=== PATIENT | male | born 1960 | race Caucasian/White ===

== ENCOUNTER 2017-08-11 14:03 | Emergency (ER) | payer MEDICARE ==
[~2017-08-11] VITALS: Ht 175.3 cm; Wt 70.3 kg
[~2017-08-11 14:03] MED LIST: ALPR0.5T3 PO; ASPI-183 PO; ATOR80TA45 PO; FURO1TAB60 PO; GEMF600T PO; LISI-515 PO; METF500T PO; METO1TAB43 PO; OXYC-406 PO; PLAV75TA29 PO
[2017-08-11 14:08] VITALS: BP 172/86; PULSE 98; RESP 18; TEMP 98; O2SAT 100
[2017-08-11] MEDS ORDERED: KETOROLAC TROMETHAMINE 60 MG/2 ML (IM) VIAL IM ONE (14:30)
[2017-08-11] MEDS ORDERED: DEXAMETHASONE SOD PHOS 4 MG/ML VIAL IM ONE (14:30)
[2017-08-11] MEDS ORDERED: ORPHENADRINE INJ 60 MG/2 ML AMP IM ONE (14:30)
--- NOTE | 2017-08-11 14:39 | PD ---
HPI Chief Complaint: Pain: Acute or Chronic Time Seen by Provider: 14:16 Travel History International Travel<30 days: No Contact w/Intl Traveler<30days: No Traveled to known affect area: No History of Present Illness HPI 56-year-old male presents emergency department for evaluation of acute on chronic low back pain that worsened over the last several days. Patient states that he woke up and felt a twinge in his right lower paraspinous region and has developed into severe back pain over the last several days. Patient states that the pain is worse with movement, decreases with rest. Patient says he gets very similar pain about once a year and does not know why he started having this pain a few days ago. He denies weakness of his lower extremities. Says his pain is very characteristic of previous pain. Patient says he does go to a "pain clinic" and receives pain medication however, his medications are not working for him. Says he has had a couple of doses of his home muscle relaxers but has not been taking them regularly. He denies any new trauma. Denies fever, chills, IV drug use, saddle anesthesia, loss of bowel or bladder function. PFSH Past Medical History Asthma: No Anxiety: Yes Depression: No Heart Rhythm Problems: Yes Cancer: No Cardiac Catheterization: Yes Cardiovascular Problems: Yes High Cholesterol: Yes Chest Pain: Yes Congestive Heart Failure: Yes (2001) COPD: Yes (?) Cerebrovascular Accident: No Coronary Artery Disease: Yes Diabetes: Yes ("BORDERLINE") Diminished Hearing: No Gastrointestinal Disorders: Yes (hx pancreatitis) Genitourinary: No Headaches: No Herniated Disk: Yes Hypertension: Yes Implanted Vascular Access Dvce: No Musculoskeletal: Yes (CHRONIC BACK PAIN ) Psychiatric: Yes Respiratory: Yes Migraines: No Myocardial Infarction: Yes (2001 ?) Pancreatitis: Yes Seizures: No Sleep Apnea: Yes ("supposed to wear cpap") Thyroid Disease: No Past Surgical History Abdominal Surgery: No Cardiac Surgery: Yes (CABG X3) Coronary Artery Bypass Graft: Yes (x 3 vessels 2001) Coronary Stent: Yes (MAY 2013) Neurologic Surgery: No Other Surgery: Yes ("BACK SURGERY" X 2) Social History Alcohol Use: No (QUIT 1999) Tobacco Use: Yes (1 PK WEEK) Substance Use: No Allergies-Medications (Allergen,Severity, Reaction): Coded Allergies: codeine (Unverified Allergy, Severe, TONGUE SWELLS, 08/11/17) Reported Meds & Prescriptions Reported Meds & Active Scripts Active Reported Oxycodone ER (Oxycodone HCl) 40 Mg Tab 40 Mg PO Q8HR Metoprolol Succinate ER 24 HR (Metoprolol Succinate) 100 Mg Tab 100 Mg PO DAILY Metformin (Metformin HCl) 500 Mg Tab 500 Mg PO BIDPC With meals Lisinopril 20 Mg Tab 20 Mg PO DAILY Gemfibrozil 600 Mg Tab 600 Mg PO BIDAC Take 30 minutes prior to breakfast and dinner. Lasix (Furosemide) 40 Mg Tab 40 Mg PO DAILY Plavix (Clopidogrel Bisulfate) 75 Mg Tab 75 Mg PO DAILY Atorvastatin (Atorvastatin Calcium) 80 Mg Tab 80 Mg PO HS Aspirin 325 Mg Tab 325 Mg PO DAILY Alprazolam 0.5 Mg Tab 0.5 Mg PO BID PRN Review of Systems Except as stated in HPI: all other systems reviewed are Neg Physical Exam Narrative GENERAL: Well developed, nourished in mild distress SKIN: Focused skin assessment warm/dry. HEAD: Atraumatic. Normocephalic. EYES: Pupils equal and round. No scleral icterus. No injection or drainage. ENT: No nasal bleeding or discharge. Mucous membranes pink and moist. NECK: Trachea midline. No JVD. No midline tenderness CARDIOVASCULAR: Regular rate and rhythm. No murmur appreciated. RESPIRATORY: No accessory muscle use. Clear to auscultation. Breath sounds equal bilaterally. MUSCULOSKELETAL: No obvious deformities. No clubbing. No cyanosis. No edema. BACK: No CVA tenderness. No rash. No point tenderness on palpation of the spine. Tenderness palpation to the left glutes and left lumbar paraspinous muscular area. Some muscle spasms noted. NEUROLOGICAL: Awake and alert. No obvious cranial nerve deficits. Motor grossly within normal limits. Normal speech. Neurovascular intact lower extremities. PSYCHIATRIC: Appropriate mood and affect; insight and judgment normal. Data Data Last Documented VS Vital Signs Date Time Temp Pulse Resp B/P (MAP) Pulse Ox O2 Delivery O2 Flow Rate FiO2 08/11/17 14:08 98.0 98 18 172/86 (114) 100 Orders Orders Dexamethasone Inj (Decadron Inj) (08/11/17 14:30) Orphenadrine Inj (Norflex Inj) (08/11/17 14:30) Ketorolac Inj (Toradol Inj) (08/11/17 14:30) MDM Medical Decision Making Medical Screen Exam Complete: Yes Emergency Medical Condition: Yes Differential Diagnosis lumbago, sciatica, muscle spasms, fracture, cauda equina syndrome Narrative Course 56-year-old male presents emergency department for evaluation of acute on chronic low back pain that worsened over the last several days. Patient states that he woke up and felt a twinge in his right lower paraspinous region and has developed into severe back pain over the last several days. Patient states that the pain is worse with movement, decreases with rest. Patient says he gets very similar pain about once a year and does not know why he started having this pain a few days ago. He denies weakness of his lower extremities. Says his pain is very characteristic of previous pain. Patient says he does go to a "pain clinic" and receives pain medication however, his medications are not working for him. Says he has had a couple of doses of his home muscle relaxers but has not been taking them regularly. He denies any new trauma. Denies fever, chills, IV drug use, saddle anesthesia, loss of bowel or bladder function. Vital signs stable. His exam findings demonstrate no focal neuro deficit. Patient has pain to the lateral lower lumbar paraspinous muscular area. Dexamethasone, Toradol, Norflex administered in the emergency department today. Patient has pain medication and muscle relaxers at home. Patient to follow-up with his primary care physician and pain management physician for further treatment and evaluation. Return for worsening or persistent symptoms. Diagnosis Primary Impression: Muscle spasm Additional Impression: Lumbago Qualified Codes: M54.5 - Low back pain Referrals: Orthopedist Primary Care Physician Additional Instructions: Perform light stretches of the lower back and legs, and alternate heat and ice packs. If you develop increased pain, weakness, fever, chills, or bowel or bladder issues, return to the ED for further treatment and evaluation. Follow up with your primary care physician in 2-3 days. Consider follow-up with an orthopedic physician for your back pain. Follow-up with your pain management clinic for further evaluation. You may take your muscle relaxers that you have at home as prescribed. Disposition: 01 DISCHARGE HOME Condition: Stable Abigail Lennon August 11, 2017 14:39
== END 2017-08-11 15:19 | disposition home or self-care (01) ==
LOC: PHEFT 14:03
DX: M62.838 Other muscle spasm (principal); M54.5 Low back pain; G89.29 Other chronic pain; E78.00 Pure hypercholesterolemia, unspecified; I11.0 Hypertensive heart disease with heart failure; I50.9 Heart failure, unspecified; I25.10 Atherosclerotic heart disease of native coronary artery without angina pectoris; E11.9 Type 2 diabetes mellitus without complications; F17.200 Nicotine dependence, unspecified, uncomplicated
CPT/HCPCS: 96372; 99283; J1100; J1885; J2360